=== PATIENT | female | born 1960 | race Caucasian/White ===

== ENCOUNTER → 2016-07-05 | Outpatient (CLI) | payer OTHER ==
[~2016-07-05] MED LIST: CLIMARA TOP; CLIMARA0.05 MG TOP; FOSAMAX70 MG PO; TYLENOL/COD#31 TAB PO; VITAMIN D1000 UNI1 PO
[2016-07-05 15:10] LABS: ALBUMIN 4.2 gm/dL (3.5-5.0); ALK PHOS 106 IU/L (33-138); ALT 111 IU/L (12-78); ANION GAP 11.9 (10.0-19.0); AST 62 IU/L (10-40); BLOOD UREA NITROGEN 17 mg/dL (6-24); CHLORIDE 104 mMol/L (96-110); CO2 28 mMol/L (22-32); CREATININE 0.9 mg/dL (0.5-1.1); ESTIMATED GFR (MDRD EQUATION) > 60; POTASSIUM 3.9 mMol/L (3.7-5.1); SODIUM 140 mMol/L (135-145); TOTAL BILIRUBIN 0.4 mg/dL (0.0-1.5); TOTAL PROTEIN 7.5 g/dL (6.0-8.4)
== END | disposition disaster alternative care site (69) ==
LOC: GLAB 14:00 → GRAD 16:00
PROVIDERS: Nurse Practitioner Family
DX: R31.9 Hematuria, unspecified (principal); R10.9 Unspecified abdominal pain; R50.9 Fever, unspecified; L90.5 Scar conditions and fibrosis of skin; N20.0 Calculus of kidney
CPT/HCPCS: Q9967